=== PATIENT | male | born 1960 | race Caucasian/White ===

== ENCOUNTER 2018-01-03 13:30 | Emergency (ER) | payer SELFPAY ==
[~2018-01-03] VITALS: Ht 180.3 cm; Wt 68.3 kg
[~2018-01-03 13:30] MED LIST: ASPIR 8181 M1 PO; PERCOCET 5/31 TABLET PO
[2018-01-03] MEDS ORDERED: ULTRAM50 MG PO (14:22)
[2018-01-03] MEDS ORDERED: NAPROSYN500 MG PO (14:22)
[2018-01-03] MEDS ORDERED: CLEOCIN300 MG PO (14:22)
[2018-01-03 14:35] VITALS: BP 170/83
== END 2018-01-03 14:37 | disposition home or self-care (01) ==
LOC: EME 13:30
DX: K04.7 Periapical abscess without sinus (principal); L03.211 Cellulitis of face; F17.200 Nicotine dependence, unspecified, uncomplicated; K03.81 Cracked tooth; K02.9 Dental caries, unspecified; Z79.82 Long term (current) use of aspirin
CPT/HCPCS: 99281; 99284